=== PATIENT | male | born 1975 | race Caucasian/White ===

== ENCOUNTER → 2018-04-02 | Day surgery (SDC) | payer OTHER ==
[~2018-04-02] VITALS: Ht 182.9 cm; Wt 131.5 kg
--- NOTE | 2018-04-02 08:36 | Operative Report ---
Operative/Inv Procedure Report Surgery Date: 04/02/18 Name of Procedure: Hemorrhoidectomy complete Pre-Operative Diagnosis: Symptomatic mixed hemorrhoidal disease (Grade 3 internal hemorrhoids , external hemorrhoids with complication) Post-Operative Diagnosis: Same Estimated Blood Loss: scant Surgeon/Document Control Associate: Raheem Baker Jr., DO Anesthesia: general endotracheal tube, block Drains: None Specimens: 1. Anal papilla 2. Hemorrhoids 3 Complications: None Condition: Good Operative Indication: This is a 42-year-old gentleman who has symptomatic mixed hemorrhoidal disease. His symptoms include prolapse of tissue requiring reduction, bleeding, protrusion and discomfort. He had rubber band ligations in the office which only partially controlled symptoms. Operative/Procedure Note Note: On the morning before his procedure the patient and enema at home He presented to [facility] was taken into the operating room He received IV antibiotics before induction of general anesthesia He underwent induction of general anesthesia and placement of laryngeal mask airway He was converted to lithotomy position in [facility] The perineum was prepped and draped in usual fashion An anal block was performed using a mixture of 0.5% Marcaine plain with 1% lidocaine with epi. A total of 30 mL was used for the block Next a gentle digital dilation of the anal canal was performed and a Fansler operating proximal scope was placed in the anal canal. Patient had a large anal papilla in the posterior left. This was grasped placed on tension and then amputated at the base with electrocautery. This was sent individually for routine pathology The largest hemorrhoid was in the left posterior position and had a very large associated external component. An elliptical incision was carried out around the hemorrhoid starting at the hemorrhoid pedicle and coming into the perianal skin. The perianal skin was then grasped and sharply excise the hemorrhoid off the underlying tissues. The subcutaneous fibers of the external anal sphincter and then the fibers of the internal anal sphincter were identified. I developed the plane between the hemorrhoid and the sphincter mechanism making sure to protect the muscle. After mobilizing the muscle off the hemorrhoid the hemorrhoid was sharply excised. A [id number] 2-0 Vicryl was placed in the hemorrhoid pedicle for hemostasis. The mucosa and anoderm were then closed with a running 3-0 Vicryl suture. This exact procedure was performed in the right posterior position. The right anterior hemorrhoid was only large on the inside there was no external component. Therefore, suture ligation of the hemorrhoid was performed and then a pexy was performed with a running 2-0 Vicryl suture. At this point the procedure was concluded I inspected for hemostasis which was adequate. The perineum was cleansed and dried. Bacitracin ointment and a clean dressing were applied. The patient was converted back to supine expected in the operating room taken recovery area in good condition. At the end of this operational needle sponges and Schmidts were accounted for
== END ==
LOC: STS 02:16
DX: K64.2 Third degree hemorrhoids (principal); D12.9 Benign neoplasm of anus and anal canal; K44.9 Diaphragmatic hernia without obstruction or gangrene
CPT/HCPCS: J0131; J1885; J2250; J2405